=== PATIENT | female | born 1965 | race Caucasian/White ===

== ENCOUNTER 2023-05-14 15:38 | Emergency (ER) | payer MEDICAID ==
[~2023-05-14] VITALS: Ht 160 cm; Wt 72.6 kg
[2023-05-14 15:46] VITALS: BP_SYST 138; PULSE 99; RESP 18; TEMP 98.3; O2SAT 100
[2023-05-14] MEDS ORDERED: IBUPROFEN 600 MG TABLET PO ONE (17:00)
[2023-05-14] MEDS ORDERED: ONDA-8 TL (17:07)
[2023-05-14] MEDS ORDERED: TRAM50TA2 PO (17:07)
[2023-05-14 17:19] VITALS: BP_SYST 138; PULSE 99; RESP 18; TEMP 98.3; O2SAT 100
== END 2023-05-14 17:20 | disposition home or self-care (01) ==
LOC: SED 15:38
DX: S13.4XXA Sprain of ligaments of cervical spine, initial encounter (principal); S09.90XA Unspecified injury of head, initial encounter; Z79.899 Other long term (current) drug therapy; W22.8XXA Striking against or struck by other objects, initial encounter; Y93.19 Activity, other involving water and watercraft; Y92.89 Other specified places as the place of occurrence of the external cause; Y99.8 Other external cause status
CPT/HCPCS: 70450-TC; 72125-TC; 76376; 99284